=== PATIENT | female | born 2000 | race American Indian/Alaskan Native ===

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

== ENCOUNTER 2022-02-11 03:47 | Inpatient (IN) | payer OTHER, MEDICAID ==
[2022-02-11 04:43] LABS: Alanine Aminotransferase 17 units/L (7-56); Albumin 4.1 g/dL (3.9-5); BUN/Creatinine Ratio 9; Blood Urea Nitrogen 7 mg/dL (7-17); Calcium 9.9 mg/dL (8.4-10.2); Hemolysis Index 15
[2022-02-11 04:48] LABS: Bilirubin,Direct < 0.2 mg/dL (0-0.2)
[2022-02-11 05:04] LABS: Basophils % (Auto) 0.2 % (0.0-1.8); Hematocrit 36.3 % (30.3-42.9); Lymphocytes # (Auto) 1.3 K/mm3 (1.2-5.4); Lymphocytes % (Auto) 15.1 % (13.4-35.0); Mean Corpuscular HGB Conc 33 % (30-34); Mean Corpuscular Volume 84 fl (79-97); Monocytes % (Auto) 11.8 % (0.0-7.3); Platelet Count 280 K/mm3 (140-440); Red Blood Count 4.33 M/mm3 (3.65-5.03); Red Cell Distribution Width 15.3 % (13.2-15.2)
--- NOTE | 2022-02-11 05:49 | XRay Report ---
Abdomen 2 views INDICATION: Abdominal pain IMPRESSION: Nonobstructive bowel gas pattern. Multiple surgical clips project over the left upper farrah drant. Signer Name: Gerardo Chew MD Signed: 02/11/2022 5:44 AM Workstation Name: [email or web address]
--- NOTE | 2022-02-11 10:36 | Event Note ---
Date: 02/11/22 patient followed by me, called me that she went to the ER in brief, intractable N/V after gastric sleeve in [place] multiple CT scans, initially there was fluid collection near the surgical site but resolved on most recent imaging EGD negative HIDA just done showed GB EF 13% so I referred to Dr Castanon for CCY
[2022-02-11] MEDS ORDERED: ONDANSETRON 4 MG/2 ML INJ IV ONE (10:55)
[2022-02-11] MEDS ORDERED: MORPHINE 4 MG/1 ML INJ IV ONE (10:55)
--- NOTE | 2022-02-11 10:55 | Emergency Department Report ---
ED Abdominal Pain HPI - General Chief Complaint: Abdominal Pain Stated Complaint: FLANK PAIN/VOMITING Time Seen by Provider: 02/11/22 10:48 Source: patient Mode of arrival: Ambulatory Limitations: No Limitations - History of Present Illness Initial Comments: 21 yo female who was sent in from primary care office with possible gallbladder problem. Patient has been having nausea and vomiting and right upper abdominal pain for the last couple of months without improvement. Patient have had several abdominal CT scan that has been inconclusive but most recent HIDA scan was diagnostic of biliary dyskinesia. Pt denies any fever but chills. Also noted nausea with no emesis. No other modifying or associated factors reported. MD Complaint: abdominal pain - Related Data Home Medications Medication Instructions Recorded Confirmed Last Taken Ziprasidone HCl [Geodon] 80 mg PO QHS 06/04/19 10/08/19 10/08/19 20:00 Ziprasidone [Geodon] 40 mg PO QAM 06/04/19 10/08/19 10/08/19 10:00 Oxybutynin [Ditropan] 5 mg PO BID 06/05/19 10/08/19 Unknown Prazosin [Minipress] 1 mg PO BID 06/05/19 10/08/19 Unknown hydrOXYzine HCL [Atarax] 25 mg PO QHS 06/05/19 10/08/19 Unknown OXcarbazepine [Trileptal] 600 mg PO BID 10/08/19 10/08/19 Unknown Allergies Allergy/AdvReac Type Severity Reaction Status Date / Time No Known Allergies Allergy Verified 11/11/18 13:05 ED Review of Systems ROS: Stated complaint: FLANK PAIN/VOMITING Other details as noted in HPI Comment: All other systems reviewed and negative Gastrointestinal: abdominal pain, nausea, vomiting. denies: diarrhea, constipation ED Past Medical Hx - Past Medical History Hx Psychiatric Treatment: Yes (bipolar schizoaffective, PTSD, anxiety, adhd, autism) Additional medical history: pica, Asperger - Surgical History Additional Surgical History: t&A i&d THROAT. HERNIA TENDON SURGERY RIGHT HAND - Social History Smoking Status: Current Some Day Smoker Substance Use Type: Marijuana - Medications Home Medications: Home Medications Medication Instructions Recorded Confirmed Last Taken Type Ziprasidone HCl [Geodon] 80 mg PO QHS 06/04/19 10/08/19 10/08/19 20:00 History Ziprasidone [Geodon] 40 mg PO QAM 06/04/19 10/08/19 10/08/19 10:00 History Oxybutynin [Ditropan] 5 mg PO BID 06/05/19 10/08/19 Unknown History Prazosin [Minipress] 1 mg PO BID 06/05/19 10/08/19 Unknown History hydrOXYzine HCL [Atarax] 25 mg PO QHS 06/05/19 10/08/19 Unknown History OXcarbazepine [Trileptal] 600 mg PO BID 10/08/19 10/08/19 Unknown History ED Physical Exam - General Limitations: No Limitations General appearance: alert, in distress (due to abdominal pain ) - Head Head exam: Present: normal inspection - Eye Eye exam: Present: normal appearance Pupils: Present: normal accommodation - ENT ENT exam: Present: normal exam, mucous membranes dry - Neck Neck exam: Present: normal inspection, full ROM. Absent: tenderness - Respiratory Respiratory exam: Present: normal lung sounds bilaterally. Absent: respiratory distress, accessory muscle use - Cardiovascular Cardiovascular Exam: Present: regular rate, normal rhythm, normal heart sounds - GI/Abdominal GI/Abdominal exam: Present: soft, tenderness (epigastric and RUQ). Absent: distended - Extremities Exam Extremities exam: Present: normal inspection, full ROM, normal capillary refill. Absent: tenderness, pedal edema - Back Exam Back exam: Absent: tenderness, CVA tenderness (R), CVA tenderness (L) - Neurological Exam Neurological exam: Present: alert, oriented X3 - Psychiatric Psychiatric exam: Present: normal affect, normal mood - Skin Skin exam: Present: warm, normal color ED Course Vital Signs 02/11/22 02/11/22 03:53 10:28 Temperature 98.1 F 98.6 F Pulse Rate 91 H 85 Respiratory 16 18 Rate Blood Pressure 154/110 Blood Pressure 141/100 [Left] O2 Sat by Pulse 98 99 Oximetry - Consultations Consultation #1: 02/11/22 11:03 Dr Castanon consulted who planned to take patient to OR as soon as tomorrow-- Consultation #2: 02/11/22 11:03 Dr Odonnell consulted who accept pt for further evaluation and treatment ED Medical Decision Making - Lab Data Result diagrams: 02/11/22 04:05 02/11/22 04:05 - Medical Decision Making Here with abdominal pain and noted with RUQ and epigastric tenderness-- with recent HIDA scan with 13 % this is likely billiary dyskinesia--but differential could be but not limited to appendicitis, diverticulitis, cholecystitis, cholelithiasis, nephrolithiasis, gastritis, pancreatitis, duodenitis, colitis, irritable bowel syndrome, cystitis, so in order to rule this out we will go ahead and order routine acute abdomen that include CBC, CMP, urinalysis. In the meantime will call and consult with Dr Castanon our surgeon pediatric occupational therapist -- who accept to have patient on soft diet and NPO pass midnight for likely surgical intervention as soon as possible. No antibiotics suggested at this time. She wanted patient admitted to the hospitalist so Dr Odonnell consulted who accept pt for further evaluation and treatment Lab reviewed with normal wbc with Critical care attestation.: If time is entered above; I have spent that time in minutes in the direct care of this critically ill patient, excluding procedure time. ED Disposition Clinical Impression: Biliary dyskinesia, Acute abdominal pain in right upper quadrant Disposition: ADMITTED INPATIENT Is pt being admited?: Yes Does the pt Need Aspirin: No Condition: Stable Instructions: Abdominal Pain (ED) Referrals: PRIMARY CARE, [Primary Care Provider] - 3-5 Days Time of Disposition: 11:04
[2022-02-11] MEDS ORDERED: ACETAMINOPHEN 325 MG TAB PO PRN (10:56)
--- NOTE | 2022-02-11 11:12 | History and Physical Report ---
History of Present Illness Chief complaint: My stomach hurts History of present illness: 21 YO Female with AMAN, PTSD, ADHD, Autism, Bipolar Disorder, Schizoaffective Disorder, Asperger, PICA presents to ED for evaluation. Patient reports "my stomach is hurting". Patient states that she has experienced abdominal pain over the past several months with persistent and worsening symptoms intermittently over the same timeframe. Patient states that her pain is 9/10, constant, not worsened with exertion. Not worsened with meals. Patient states that her pain radiates to the right side of her abdomen. Patient seen and evaluated as outpatient by [facility], Dr. Cortes. Patient underwent CT scan abdomen pelvis, EGD, and HIDA scan. HIDA scan revealed gallbladder ejection fraction of 30%. Patient acknowledges nausea and multiple episodes of vomiting. Patient transported to [facility] via private vehicle for further care and evaluation of the aforementioned symptoms. The patient was seen and evaluated in the emergency department. All lab and imaging studies reviewed. Patient found to have clinical symptoms consistent with acute cholecystitis/symptomatic cholelithiasis. Surgery team consulted in ED. Patient pending surgical intervention at this time. Patient denies fever, chills, chest pain, palpitation, adductive cough, skin rash or recent contact, known exposure to COVID-19. No prior admission for review. All medication listed at time of admission has been reconciled. Advanced care planning conducted in ED. Past History Past Medical History: other (See HPI) Past Surgical History: hernia repair, Other (Gastric sleeve) Social history: single, lives with family Family history: hypertension Medications and Allergies Allergies Allergy/AdvReac Type Severity Reaction Status Date / Time No Known Allergies Allergy Verified 02/11/22 11:09 Active Meds: Active Medications Acetaminophen (Acetaminophen 325 Mg Tab) 650 mg PO Q4H PRN PRN Reason: Pain MILD(1-3)/Fever >100.5/VELASQUEZ Hydromorphone HCl (Hydromorphone 0.5 Mg/0.5 Ml Inj) 0.5 mg IV Q3H PRN PRN Reason: Pain , Severe (7-10) Hydroxyzine HCl (Hydroxyzine Hcl 25 Mg Tab) 25 mg PO QHS [facility] Sodium Chloride (Nacl 0.9% 1000 Ml) 1,000 mls @ 125 mls/hr IV DIRECT [facility] Miscellaneous Medication (Oxcarbazepine [Trileptal]) 600 mg PO BID [facility] Miscellaneous Medication (Ziprasidone Hcl [Geodon]) 80 mg PO QHS [facility] Ondansetron HCl (Ondansetron 4 Mg/2 Ml Inj) 4 mg IV Q8H PRN PRN Reason: Nausea And Vomiting Oxybutynin Chloride (Oxybutynin 5 Mg Tab) 5 mg PO BID [facility] Oxycodone/Acetaminophen (Oxycodone /Acetaminophen 5-325mg Tab) 1 tab PO Q6H PRN PRN Reason: Pain, Moderate (4-6) Prazosin HCl (Prazosin 1 Mg Cap) 1 mg PO BID [facility] Sodium Chloride (Sodium Chloride 0.9% 10 Ml Flush Syringe) 10 ml IV BID [facility] Sodium Chloride (Sodium Chloride 0.9% 10 Ml Flush Syringe) 10 ml IV PRN PRN PRN Reason: LINE FLUSH Ziprasidone (Ziprasidone 40 Mg Cap) 40 mg PO QAM [facility] Review of Systems Constitutional: weight loss, no weight gain, no fever, no sweats Ears, nose, mouth and throat: no ear pain, no tinnitis, no decreased hearing Cardiovascular: no chest pain, no orthopnea, no rapid/irregular heart beat, no edema, no syncope Respiratory: no cough, no cough with sputum, no excessive sputum, no hemoptysis Gastrointestinal: abdominal pain, nausea, vomiting, no hematemesis, no coffee ground emesis, no BRBPR, no melena, no hematochezia Genitourinary Female: no pelvic pain, no flank pain, no dysuria, no urinary frequency, no urgency Rectal: no pain, no incontinence, no bleeding Musculoskeletal: no neck stiffness, no neck pain, no arm numbness/tingling, no low back pain, no shooting leg pain Integumentary: no rash, no redness, no sores, no wounds, no jaundice Neurological: no head injury, no paralysis, no seizures, no tremors Psychiatric: no anxiety, no change in sleep habits, no sleep disturbances, no hypersomnia, no suicidal ideation, no hallucinations Endocrine: no cold intolerance, no excessive thirst, no polyuria Hematologic/Lymphatic: no easy bruising, no easy bleeding Allergic/Immunologic: no urticaria, no allergic rhinitis, no wheezing Exam - Constitutional Vitals: Temp Pulse Resp BP Pulse Ox 98.6 F 85 18 141/100 99 09/01/22 10:28 02/11/22 10:28 02/11/22 10:28 02/11/22 10:28 02/11/22 10:28 General appearance: Present: mild distress - EENT Eyes: Present: PERRL ENT: hearing intact, clear oral mucosa - Neck Neck: Present: supple, normal ROM - Respiratory Respiratory effort: normal Respiratory: bilateral: CTA - Cardiovascular Heart Sounds: Present: S1 & S2. Absent: rub, click - Extremities Extremities: pulses symmetrical, No edema Peripheral Pulses: within normal limits - Abdominal General gastrointestinal: Present: soft, tender, normal bowel sounds Localized gastrointestinal: tender: diffuse Female genitourinary: Present: normal - Integumentary Integumentary: Present: clear, warm, dry - Musculoskeletal Musculoskeletal: gait normal, strength equal bilaterally - Psychiatric Psychiatric: appropriate mood/affect, intact judgment & insight - Neurologic Neurologic: CNII-XII intact, moves all extremities Results - Labs CBC & Chem 7: 02/11/22 04:05 02/11/22 04:05 Labs: Abnormal lab results 02/11/22 02/11/22 Range/Units 04:05 04:05 RDW 15.3 H (13.2-15.2) % [place] % (Auto) 11.8 H (0.0-7.3) % [place] # (Auto) 1.0 H (0.0-0.8) K/mm3 Seg Neutrophils % 72.9 H (40.0-70.0) % Glucose 104 H (65-100) mg/dL Lipase 12 L (13-60) units/L Assessment and Plan - Patient Problems (1) Acute cholecystitis Current Visit: Yes Status: Suspected Plan to address problem: Surgery team consulted. Further care and evaluation as per surgical team. N.p.o., IV fluid resuscitation therapy, supportive care, pain control. (2) Biliary dyskinesia Current Visit: Yes Status: Acute Plan to address problem: Liver function test, surgery team consulted. Supportive care, further care and evaluation as per surgical team. Repeat CMP in AM. (3) Autism Current Visit: Yes Status: Acute Plan to address problem: Continue medical management, supportive care. (4) Asperger's disorder Current Visit: Yes Status: Acute Plan to address problem: Continue medical management, supportive care. (5) Generalized anxiety disorder Current Visit: Yes Status: Acute Plan to address problem: Benzodiazepine therapy as clinical indicated, verbal prompting, verbal redirection. (6) Bipolar disorder Current Visit: Yes Status: Acute Plan to address problem: Continue medical management, supportive care, outpatient psychiatry follow-up. (7) DVT prophylaxis Current Visit: Yes Status: Acute Plan to address problem: SCD to bilateral lower extremities while in bed (8) Advance care planning Current Visit: Yes Status: Acute Plan to address problem: Disease education conducted, care plan discussed, diagnoses discussed, prognosis discussed, patient acknowledges understanding and agreed with care plan, +30 minutes. (9) Preventative health care Current Visit: Yes Status: Acute Plan to address problem: Patient counseled regarding medication compliance, outpatient follow-up with psychiatry, outpatient follow-up with primary care physician for all age and risk factor appropriate screening test. +30 minutes.
[2022-02-11] MEDS: SODIUM CHLORIDE 0.9% 1000 ML 1,000 ML IV SCH ×2 (12:03→17:27)
[2022-02-11] MEDS: HYDROmorphone 0.5 MG/0.5 ML INJ IV PRN ×2 (12:03→20:34)
[2022-02-11] MEDS: ONDANSETRON 4 MG/2 ML INJ IV PRN ×2 (12:03→20:38)
--- NOTE | 2022-02-11 12:47 | Consultation ---
History of Present Illness Consult date: 02/11/22 Reason for consult: abdominal pain Chief complaint: abd pain - History of present illness History of present illness: 21 yo F with hx of bipolar d/o who presents to ER with intractable abdominal pain. Pain has been ongoing for months. Patient has hx of lap gastric sleeve in October 2021 in [place]. Patient states her pain in in the epigastrum and can radiate to the right side of her abdomen. No alleviating factors. It is associated with NB/NB emesis and nausea. Patient is followed by [facility] Dr. Cortes as outpatient. Outpt w/u included CT scan A/P, EGD, and HIDA scan. Recent CT and EGD unremarkable. HIDA revealed GB EF of 13%. No f/c, cp, sob. Pt currently nika clear liquids. Patient lost almost 75 lbs since her bariatric surgery. Past History Past Medical History: other (bipolar d/o) Past Surgical History: Other (Laparoscopic gastric sleeve) Social history: smoking (Marijuana-prescribed). denies: alcohol abuse Family history: hypertension (Mother), stroke (Mother) Medications and Allergies Allergies Allergy/AdvReac Type Severity Reaction Status Date / Time No Known Allergies Allergy Verified 02/11/22 11:09 Active Meds: Active Medications Acetaminophen (Acetaminophen 325 Mg Tab) 650 mg PO Q4H PRN PRN Reason: Pain MILD(1-3)/Fever >100.5/VELASQUEZ Hydromorphone HCl (Hydromorphone 0.5 Mg/0.5 Ml Inj) 0.5 mg IV Q3H PRN PRN Reason: Pain , Severe (7-10) Last Admin: 02/11/22 12:03 Dose: 0.5 mg Hydroxyzine HCl (Hydroxyzine Hcl 25 Mg Tab) 25 mg PO QHS [facility] Sodium Chloride (Nacl 0.9% 1000 Ml) 1,000 mls @ 125 mls/hr IV DIRECT [facility] Last Admin: 02/11/22 12:03 Dose: 125 mls/hr Ondansetron HCl (Ondansetron 4 Mg/2 Ml Inj) 4 mg IV Q8H PRN PRN Reason: Nausea And Vomiting Last Admin: 02/11/22 12:03 Dose: 4 mg Oxcarbazepine (Oxcarbazepine 300 Mg Tab) 600 mg PO BID [facility] Oxybutynin Chloride (Oxybutynin 5 Mg Tab) 5 mg PO BID [facility] Oxycodone/Acetaminophen (Oxycodone /Acetaminophen 5-325mg Tab) 1 tab PO Q6H PRN PRN Reason: Pain, Moderate (4-6) Prazosin HCl (Prazosin 1 Mg Cap) 1 mg PO BID [facility] Sodium Chloride (Sodium Chloride 0.9% 10 Ml Flush Syringe) 10 ml IV BID [facility] Sodium Chloride (Sodium Chloride 0.9% 10 Ml Flush Syringe) 10 ml IV PRN PRN PRN Reason: LINE FLUSH Ziprasidone (Ziprasidone 40 Mg Cap) 40 mg PO QAM [facility] Ziprasidone (Ziprasidone 40 Mg Cap) 80 mg PO QHS [facility] Review of Systems All systems: negative (10 point ROS performed and negative except for that listed in HPI) Exam Vital Signs Temp Pulse Resp BP Pulse Ox 98.1 F 91 H 16 154/110 98 02/11/22 03:53 02/11/22 03:53 02/11/22 03:53 02/11/22 03:53 02/11/22 03:53 Narrative exam: Gen.: Awake, alert, oriented x3. No apparent distress ENT: Trachea midline. No lymphadenopathy. No scleral icterus or conjunctival pallor CV: S1, S2 present Respiratory: No audible wheezes Abdomen: Soft, nondistended, tenderness to palpation in the epigastrium, left upper quadrant. Multiple well-healed laparoscopic scars. No rebound, rigidity, guarding Extremities: No clubbing, cyanosis, edema Results - Labs 02/11/22 04:05 02/11/22 04:05 Abnormal lab results 02/11/22 02/11/22 Range/Units 04:05 04:05 RDW 15.3 H (13.2-15.2) % [place] % (Auto) 11.8 H (0.0-7.3) % [place] # (Auto) 1.0 H (0.0-0.8) K/mm3 Seg Neutrophils % 72.9 H (40.0-70.0) % Glucose 104 H (65-100) mg/dL Lipase 12 L (13-60) units/L Diabetes panel 02/11/22 Range/Units 04:05 Sodium 138 (137-145) mmol/L Potassium 3.6 (3.6-5.0) mmol/L Chloride 98.1 (98-107) mmol/L Carbon Dioxide 22 (22-30) mmol/L BUN 7 (7-17) mg/dL Creatinine 0.8 (0.6-1.2) mg/dL Glucose 104 H (65-100) mg/dL Calcium 9.9 (8.4-10.2) mg/dL AST 17 (5-40) units/L ALT 17 (7-56) units/L Alkaline Phosphatase 92 (35-129) units/L Total Protein 7.1 (6.3-8.2) g/dL Albumin 4.1 (3.9-5) g/dL Calcium panel 02/11/22 Range/Units 04:05 Calcium 9.9 (8.4-10.2) mg/dL Albumin 4.1 (3.9-5) g/dL Pituitary panel 02/11/22 Range/Units 04:05 Sodium 138 (137-145) mmol/L Potassium 3.6 (3.6-5.0) mmol/L Chloride 98.1 (98-107) mmol/L Carbon Dioxide 22 (22-30) mmol/L BUN 7 (7-17) mg/dL Creatinine 0.8 (0.6-1.2) mg/dL Glucose 104 H (65-100) mg/dL Calcium 9.9 (8.4-10.2) mg/dL Adrenal panel 02/11/22 Range/Units 04:05 Sodium 138 (137-145) mmol/L Potassium 3.6 (3.6-5.0) mmol/L Chloride 98.1 (98-107) mmol/L Carbon Dioxide 22 (22-30) mmol/L BUN 7 (7-17) mg/dL Creatinine 0.8 (0.6-1.2) mg/dL Glucose 104 H (65-100) mg/dL Calcium 9.9 (8.4-10.2) mg/dL Total Bilirubin 0.20 (0.1-1.2) mg/dL AST 17 (5-40) units/L ALT 17 (7-56) units/L Alkaline Phosphatase 92 (35-129) units/L Total Protein 7.1 (6.3-8.2) g/dL Albumin 4.1 (3.9-5) g/dL Assessment and Plan 21 yo F with biliary dyskinesia, intractable abd pain/n/v Plan: -Patient admitted to hospitalist service 1. CLD today 2. NPOp MN 3. prn pain and nausea control 4. Okay to resume home medications 5. Plan for cholecystectomy tomorrow 02/12/2022. All risks, benefits, alternatives to surgery discussed with the patient and questions answered. Consent obtained. I did make patient aware that if her pain continues despite cholecystectomy she will likely need to follow-up with a bariatric surgeon for further work-up. Patient made her mother aware of plan. Thank you for this consultation. Please call with any questions or concerns. Evaluation and treatment of this patient was during the time of the national and state emergency arising from COVID19 coronavirus pandemic. Treatment and procedures performed meet the current and available best practice and guidelines for patient during the COVID pandemic.
--- NOTE | 2022-02-11 14:00 | Anesthesia Consultation ---
<ESTHELA WARE - Last Filed: 02/11/22 13:56> Anesthesia Consult and Med Hx Date of service: 02/12/22 - Airway Anesthetic Teeth Evaluation: Dentures (uppers. Pt states not removable) ROM Head & Neck: Adequate Mental/Hyoid Distance: Adequate Mallampati Class: Class I Intubation Access Assessment: Good - Pulmonary Exam CTA: No - Cardiac Exam Cardiac Exam: RRR - Pre-Operative Health Status ASA Pre-Surgery Classification: ASA1 Proposed Anesthetic Plan: General - Pre-Anesthesia Comment Pre-Anesthesia Comments: Pt requested to have mother present during anesthesia eval. Mother not avail in person nor phone at current. Pt unwilling to communicate "while in pain". <ASHLEY EMERSON - Last Filed: 02/12/22 10:03> Anesthesia Consult and Med Hx - Airway Intubation Access Assessment: Good - Pre-Operative Health Status ASA Pre-Surgery Classification: ASA2 Proposed Anesthetic Plan: General - Pulmonary Hx Smoking: No Hx Respiratory Symptoms: No - Cardiovascular System Hx Hypertension: No - Central Nervous System CVA: No Hx Psychiatric Problems: Yes - Endocrine Hx Renal Disease: No Hx Liver Disease: No Hx Insulin Dependent Diabetes: No Hx Non-Insulin Dependent Diabetes: No Hx Thyroid Disease: No - Other Systems Hx Obesity: No - Additional Comments Anesthesia Medical History Comments: Active N/V in preop. Discussed medical hx and anesthetic plan in preop are with patient prior to surgery. Written anesthesia consent obtained.
[2022-02-11] MEDS: oxyCODONE /ACETAMINOPHEN 5-325MG TAB PO PRN ×2 (14:46→22:56)
[2022-02-11] MEDS ORDERED: NON-FORMULARY EACH (Oxcarbazepine [Trileptal] 600 MG Tablet) PO SCH (22:00)
[2022-02-11] MEDS ORDERED: NON-FORMULARY EACH (Ziprasidone Hcl [Geodon] 80 MG Capsule) PO SCH (22:00)
[2022-02-11] MEDS: ZIPRASIDONE 40 MG CAP PO SCH (22:32)
[2022-02-11] MEDS: hydrOXYzine HCL 25 MG TAB PO SCH (22:32)
[2022-02-11] MEDS: OXYBUTYNIN 5 MG TAB PO SCH (22:32)
[2022-02-11] MEDS: OXcarbazepine 300 MG TAB PO SCH ×2 (22:33→22:48)
[2022-02-11] MEDS: PRAZOSIN 1 MG CAP PO SCH (22:43)
[2022-02-12 05:50] LABS: Basophils % (Auto) 0.5 % (0.0-1.8); Eosinophils # (Auto) 0.1 K/mm3 (0.0-0.4); Eosinophils % (Auto) 1.6 % (0.0-4.3); Hematocrit 32.2 % (30.3-42.9); Hemoglobin 10.4 gm/dl (10.1-14.3); Lymphocytes # (Auto) 1.6 K/mm3 (1.2-5.4); Lymphocytes % (Auto) 27.9 % (13.4-35.0); Mean Corpuscular HGB Conc 32 % (30-34); Mean Corpuscular Volume 85 fl (79-97); Monocytes # (Auto) 0.8 K/mm3 (0.0-0.8); Monocytes % (Auto) 13.3 % (0.0-7.3); Platelet Count 211 K/mm3 (140-440); Red Cell Distribution Width 15.4 % (13.2-15.2)
[2022-02-12 06:09] LABS: Alanine Aminotransferase 14 units/L (7-56); Albumin 3.4 g/dL (3.9-5); BUN/Creatinine Ratio 10; Blood Urea Nitrogen 8 mg/dL (7-17); Hemolysis Index 1
[2022-02-12] MEDS: SODIUM CHLORIDE 0.9% 1000 ML 1,000 ML IV SCH (06:18)
[2022-02-12] MEDS ORDERED: LACTATED RINGERS 1,000 ML ONE ×2 (09:45→11:43)
[2022-02-12] MEDS ORDERED: SCOPOLAMINE TRANSDERMAL PATCH 72 HR TD ONE (09:56)
[2022-02-12] MEDS ORDERED: MIDAZOLAM 2 MG/2 ML INJ ONE (09:57)
[2022-02-12] MEDS ORDERED: ceFAZolin/STERILE WATER 2 GM/20 ML SYRINGE IV NR (10:00)
[2022-02-12] MEDS ORDERED: HYDROmorphone 0.5 MG/0.5 ML INJ IV PRN (10:04)
--- NOTE | 2022-02-12 10:04 | Anesthesia Day of Surgery ---
Anesthesia Day of Surgery - Day of Surgery Patient Examined: Yes Patient H&P Reviewed: Yes Patient is NPO: Yes
[2022-02-12] MEDS ORDERED: LIDOCAINE MPF (2%) 20 MG/1 ML VIAL 5 ML ONE (10:18)
[2022-02-12] MEDS ORDERED: LIDOCAINE (1%) 10 MG/1 ML VIAL 20 ML MDV ONE (10:18)
[2022-02-12] MEDS ORDERED: HYDROmorphone 1 MG/1 ML INJ ONE (10:18)
[2022-02-12] MEDS ORDERED: dexAMETHasone 20 MG/5 ML VIAL ONE (10:18)
[2022-02-12] MEDS ORDERED: BUPIVACAINE/PF (0.5%) 5 MG/1 ML 30 ML VIAL INFILTRATI ONE ×2 (10:19→11:27)
[2022-02-12] MEDS ORDERED: propofoL 200 MG/20 ML VIAL IV ONE (10:19)
[2022-02-12] MEDS ORDERED: ePHEDrine SULFATE 50 MG/1 ML INJ ONE (10:20)
[2022-02-12] MEDS: ONDANSETRON 4 MG/2 ML INJ IV NR ×3 (10:21→20:50)
[2022-02-12] MEDS ORDERED: INDOCYANINE GREEN 25 MG VIAL IVP ONE (10:22)
[2022-02-12] MEDS ORDERED: INDOCYANINE GREEN 25 MG VIAL IVP NR (10:32)
[2022-02-12] MEDS ORDERED: MIDAZOLAM 2 MG/2 ML INJ IV NR (11:00)
[2022-02-12] MEDS ORDERED: SCOPOLAMINE TRANSDERMAL PATCH 72 HR TD NR (11:00)
[2022-02-12] MEDS ORDERED: fentaNYL 100 MCG/2 ML INJ ONE (11:13)
[2022-02-12] MEDS ORDERED: SODIUM CHLORIDE 0.9% IRR 1,500 ML BOTTLE IR ONE (11:27)
[2022-02-12] MEDS ORDERED: LIDOCAINE (1%) 10 MG/1 ML VIAL 20 ML MDV INFILTRATI ONE (11:27)
[2022-02-12] MEDS ORDERED: NEOSTIGMINE 10MG/10 ML INJ MDV ONE (12:02)
[2022-02-12] MEDS ORDERED: GLYCOPYRROLATE 0.4 MG/2 ML INJ ONE (12:02)
--- NOTE | 2022-02-12 12:27 | Post Operative Note ---
Pre-op diagnosis: biliary dyskinesia Post-op diagnosis: same Findings: distended gallbladder with adhesions to omentum Procedure: robotic assisted laparoscopic cholecystectomy Anesthesia: GETA, local Surgeon: WANG BOWMAN (ASSIST: [employer]) Estimated blood loss: minimal Pathology: list (gallbladder) Specimen disposition: to lab Condition: stable Disposition: PACU
[2022-02-12] MEDS ORDERED: LACTATED RINGERS 1,000 ML IV SCH (12:30)
[2022-02-12] MEDS ORDERED: hydrALAZINE 20 MG/1 ML INJ ONE (12:35)
--- NOTE | 2022-02-12 13:49 | Post Anesthesia Evaluation ---
- Post Anesthesia Evaluation Patient Participated: Yes Airway Patent: Yes Stable Respiratory Function: Yes Nausea/Vomiting: No Temp > 96.8F: Yes Pain Manageable: Yes Adequeate Hydration: Yes Anesthesia Complications: No Other Comments: Patient had difficulty urinating post op and was straight cathed with 550cc urine returned. Received hydralazine IV for hypertension which persisted despite cath. BP back nearf preproceedure baseline at time of transfer.
[2022-02-12] MEDS: HYDROmorphone 0.5 MG/0.5 ML INJ IV PRN ×2 (14:45→20:50)
[2022-02-12] MEDS: PRAZOSIN 1 MG CAP PO SCH ×2 (17:11→22:06)
[2022-02-12] MEDS: oxyCODONE /ACETAMINOPHEN 5-325MG TAB PO PRN (17:19)
[2022-02-12] MEDS: ZIPRASIDONE 40 MG CAP PO SCH ×2 (17:21→22:07)
[2022-02-12] MEDS: OXcarbazepine 300 MG TAB PO SCH ×2 (17:22→22:06)
[2022-02-12] MEDS: OXYBUTYNIN 5 MG TAB PO SCH ×3 (17:22→22:21)
--- NOTE | 2022-02-12 17:28 | Operative Report ---
Operative Report Operative Report: Date: 02/12/22 Pre-op diagnosis: biliary dyskinesia Post-op diagnosis: same Findings: distended gallbladder with adhesions to omentum Procedure: robotic assisted laparoscopic cholecystectomy Anesthesia: GETA, local Surgeon: WANG BOWMAN (ASSIST: [employer]) Estimated blood loss: minimal Pathology: list (gallbladder) Specimen disposition: to lab Condition: stable Disposition: PACU HPI an indication: 21-year-old female who presented to the ER with intractable upper abdominal pain, n/v for several months. She has hx of lap gastric sleeve several months ago and lost about 75 lbs. Extensive w/u for symptoms was performed as outpatient and HIDA scan revealed GB EF of 13%. Patient was admitted to the hospital and started on IVF and antiemetics. It was recommended that the patient undergo cholecystectomy for biliary dyskinesia. All risks, benefits, alternatives to surgery were discussed in detail and questions answered. Consent was obtained for robotic assisted laparoscopic, possible open cholecystectomy, possible cholangiogram. Procedure in detail: The patient was identified in the preoperative area and taken back to the operating room, placed on the operating room table in supine position. After anesthesia was induced, the abdomen was prepped and draped in usual sterile fashion and timeout was performed. Local anesthetic was infiltrated into all of the skin incision sites. A enid incision was made in the LUQ through which a Veress needle was inserted. The Veress needle positioning was confirmed using the saline drop test and the abdomen insufflated to 15 mmHg without incident. A supraumbilical incision was made through which a 5 mm Optiview trocar was placed. The abdomen was inspected and there was no underlying injury to the abdominal structures. The veress needle was identified and removed. 8 mm robotic trocars were then placed in the right upper quadrant, left upper quadrant, and left lateral abdomen under direct visualization. The 5 mm supraumbilical trocar was removed and replaced with an 8 mm robotic trocar. The patient was placed in reverse Trendelenburg and tilted to the left. The robot was then docked. A Noel grasper was placed in arm #1, a camera in arm #2, a monopolar hook in arm #3, and a prograsp in arm #4. The surgeon was then transferred to the console. The gallbladder was moderately distended with adhesions to the omentum. The omental adhesions were taken down using blunt dissection and electrocautery. The fundus of the gallbladder was grasped and retracted cephalad to the liver. The infundibulum was retracted laterally. Using firefly, the cystic duct was identified. The cystic duct and artery were carefully skeletonized in the usual fashion. The medial and lateral peritoneal attachments to the gallbladder were dissected using a combination of blunt dissection and hook electrocautery. The cystic duct and artery were the only 2 structures seen entering the gallbladder and the critical view was successfully obtained. 2 hemolock clips were placed on the proximal aspect of the cystic duct and 1 distally, and 1 hemolock clip was placed on the proximal aspect of the cystic artery and 1 distally. Both structures were transected in between the clips using EndoShears by the assistant paralegal. The gallbladder was dissected from the liver bed using electrocautery. Once completely dissected it was placed into the right upper quadrant and the liver bed was examined for hemostasis. This was carefully ensured. The clips were visualized and intact. There was no bleeding or bile leakage. The instrument in arm #3 was replaced with the camera. The assistant paralegal deployed the endocatch bag and the gallbladder was placed in the bag and secured. The robot was then undocked and the surgeon scrubbed back in. The remainder of the case was performed laparoscopically. The gallbladder was removed via the umbilical port. The fascia of this port was was closed with interrupted 0 Vicryl suture x2 using the Mark Eric device. The raytec in the abdomen was removed. The ports were then removed under direct visualization. Skin incisions were closed with 4-0 Monocryl subcuticular stitches and skin glue. All skin incisions were once again infiltrated with local anesthetic. At the end case all sponge, instrument, sharp counts were correct 2. The patient was awoken from anesthesia, extubated, and taken to PACU in stable condition.
[2022-02-12] MEDS ORDERED: hydrALAZINE 20 MG/1 ML INJ IV PRN (21:27)
[2022-02-12] MEDS ORDERED: hydrALAZINE 20 MG/1 ML INJ IV SCH (22:00)
[2022-02-12] MEDS: hydrOXYzine HCL 25 MG TAB PO SCH (22:11)
--- NOTE | 2022-02-12 22:36 | Progress Note ---
Assessment and Plan (1) Acute cholecystitis Current Visit: Yes Status: Suspected Plan to address problem: Surgery team consulted. Further care and evaluation as per surgical team. N.p.o., IV fluid resuscitation therapy, supportive care, pain control. (2) Biliary dyskinesia Current Visit: Yes Status: Acute Plan to address problem: Liver function test, surgery team consulted. Supportive care, further care and evaluation as per surgical team. Repeat CMP in AM. (3) Autism Current Visit: Yes Status: Acute Plan to address problem: Continue medical management, supportive care. (4) Asperger's disorder Current Visit: Yes Status: Acute Plan to address problem: Continue medical management, supportive care. (5) Generalized anxiety disorder Current Visit: Yes Status: Acute Plan to address problem: Benzodiazepine therapy as clinical indicated, verbal prompting, verbal redirection. (6) Bipolar disorder Current Visit: Yes Status: Acute Plan to address problem: Continue medical management, supportive care, outpatient psychiatry follow-up. (7) DVT prophylaxis Current Visit: Yes Status: Acute Plan to address problem: SCD to bilateral lower extremities while in bed (8) Advance care planning Current Visit: Yes Status: Acute Plan to address problem: Disease education conducted, care plan discussed, diagnoses discussed, prognosis discussed, patient acknowledges understanding and agreed with care plan, +30 minutes. (9) Preventative health care Current Visit: Yes Status: Acute Plan to address problem: Patient counseled regarding medication compliance, outpatient follow-up with psychiatry, outpatient follow-up with primary care physician for all age and risk factor appropriate screening test. +30 minutes. Subjective Date of service: 02/12/22 Objective - Constitutional Vitals: Vital Signs - 12hr 02/12/22 02/12/22 02/12/22 12:25 12:30 12:35 Temperature 97.0 F L Pulse Rate 79 80 80 Respiratory 18 17 19 Rate Blood Pressure 159/104 158/109 157/108 Blood Pressure [Left] O2 Sat by Pulse 100 100 100 Oximetry 02/12/22 02/12/22 02/12/22 12:40 12:45 13:00 Temperature Pulse Rate 84 82 79 Respiratory 22 18 20 Rate Blood Pressure 142/99 147/100 152/104 Blood Pressure [Left] O2 Sat by Pulse 100 100 100 Oximetry 02/12/22 02/12/22 02/12/22 13:15 13:30 14:00 Temperature 98.4 F Pulse Rate 93 H 85 88 Respiratory 22 17 13 Rate Blood Pressure 150/100 143/96 155/97 Blood Pressure [Left] O2 Sat by Pulse 98 98 99 Oximetry 02/12/22 02/12/22 02/12/22 18:00 20:01 20:58 Temperature 98.7 F Pulse Rate 64 Respiratory 20 Rate Blood Pressure Blood Pressure 173/108 [Left] O2 Sat by Pulse 98 98 Oximetry 02/12/22 02/12/22 21:04 22:06 Temperature Pulse Rate 64 64 Respiratory Rate Blood Pressure 173/108 Blood Pressure 187/104 [Left] O2 Sat by Pulse Oximetry - Labs CBC & Chem 7: 02/12/22 05:13 02/12/22 05:13 Labs: Abnormal lab results 02/12/22 02/12/22 Range/Units 05:13 05:13 MCH 27 L (28-32) pg RDW 15.4 H (13.2-15.2) % [place] % (Auto) 13.3 H (0.0-7.3) % Potassium 3.5 L (3.6-5.0) mmol/L Total Protein 5.6 L D (6.3-8.2) g/dL Albumin 3.4 L (3.9-5) g/dL
[2022-02-13] MEDS: SODIUM CHLORIDE 0.9% 1000 ML 1,000 ML IV SCH (06:15)
[2022-02-13] MEDS: HYDROmorphone 0.5 MG/0.5 ML INJ IV PRN ×2 (06:15→11:45)
[2022-02-13] MEDS: ONDANSETRON 4 MG/2 ML INJ IV PRN ×2 (06:15→11:44)
--- NOTE | 2022-02-13 10:44 | Progress Note ---
Assessment and Plan Pod #1 for robotic cholecysttectomy. Pt with some incisional pain. tolerating diet. OK to dc today, fu with Dr. Dial next week. Subjective Date of service: 02/13/22 Patient Reports: Positive: feels better, tolerating a regular diet Narrative: Pod #1 for robotic cholecysttectomy. Pt with some incisional pain. tolerating diet. OK to dc today, fu with Dr. Dial next week. Objective Vital Signs - 12hr 02/13/22 06:12 Temperature 98.8 F Pulse Rate 96 H Respiratory 20 Rate Blood Pressure 130/76 [Left] - Labs 02/12/22 05:13 02/12/22 05:13
--- NOTE | 2022-02-13 12:19 | Discharge Summary ---
Providers - Providers Date of Admission: 02/11/22 10:57 Date of discharge: 02/20/22 Attending physician: ARISTEO CASTRO Primary care physician: [employer] Hospitalization Condition: Stable Disposition: 30 STILL A PATIENT Final Discharge Diagnosis (Prints w/discharge instructions): -- Acute cholecystitis s/p cholecystectomy Time spent for discharge: 34 minutes Core Measure Documentation - Palliative Care Palliative Care/ Comfort Measures: Not Applicable - Core Measures Any of the following diagnoses?: none Exam - Constitutional Vitals: Temp Pulse Resp BP Pulse Ox 98.8 F 96 H 20 130/76 98 02/13/22 06:12 02/13/22 06:12 02/13/22 06:12 02/13/22 06:12 02/12/22 20:01 Plan Activity: advance as tolerated Weight Bearing Status: Weight Bear as Tolerated Diet: low fat, low salt Follow up with: PRIMARY CARE, [Primary Care Provider] - 3-5 Days Prescriptions: oxyCODONE /ACETAMINOPHEN [Percocet 5/325 mg] 1 tab PO Q6H PRN #10 tablet PRN Reason: Pain, Moderate (4-6)
[2022-02-13 12:22] VITALS: BP 140/88
[2022-02-13] MEDS: OXcarbazepine 300 MG TAB PO SCH (13:24)
[2022-02-13] MEDS: PRAZOSIN 1 MG CAP PO SCH (13:24)
[2022-02-13] MEDS: OXYBUTYNIN 5 MG TAB PO SCH (13:24)
[2022-02-13] MEDS: ZIPRASIDONE 40 MG CAP PO SCH (13:24)
[2022-02-13] MEDS: oxyCODONE /ACETAMINOPHEN 5-325MG TAB PO PRN (14:13)
== END 2022-02-13 14:00 | disposition home or self-care (01) | DRG 418 ==
LOC: ED 03:47 → 3A 10:57
PROVIDERS: ADMIT Internal Medicine; ATTEND Internal Medicine
PROC: 0FT44ZZ Resection of Gallbladder, Percutaneous Endoscopic Approach (ICD-10-PCS; principal; 2022-02-12)
PROC: 8E0W4CZ Robotic Assisted Procedure of Trunk Region, Percutaneous Endoscopic Approach (ICD-10-PCS; 2022-02-12)
DX: K81.0 Acute cholecystitis (principal); F84.5 Asperger's syndrome; K82.8 Other specified diseases of gallbladder; F41.1 Generalized anxiety disorder; F31.9 Bipolar disorder, unspecified; F17.200 Nicotine dependence, unspecified, uncomplicated; F25.9 Schizoaffective disorder, unspecified; F43.10 Post-traumatic stress disorder, unspecified; F41.9 Anxiety disorder, unspecified; F90.9 Attention-deficit hyperactivity disorder, unspecified type; Z82.49 Family history of ischemic heart disease and other diseases of the circulatory system; Z82.3 Family history of stroke; K66.0 Peritoneal adhesions (postprocedural) (postinfection)
CPT/HCPCS: 36415; 74019; 80048; 80053; 80076; 82150; 83690; 84703; 85025; 87641; 88304; G0378; J1815; J3490; Q0177; J0360; J1100; J1170; J2250; J2270; J2405; J2704; J2710; J3010; J7030; J7120

== ENCOUNTER 2022-02-16 04:35 | Emergency (ER) | payer OTHER, MEDICAID ==
[2022-02-16] MEDS ORDERED: ONDANSETRON 4 MG/2 ML INJ IV ONE ×2 (05:30→09:37)
[2022-02-16] MEDS ORDERED: SODIUM CHLORIDE 0.9% 1000 ML 1,000 ML IV ONE (05:30)
[2022-02-16 06:14] LABS: Basophils # (Auto) 0.1 K/mm3 (0.0-0.1); Basophils % (Auto) 0.7 % (0.0-1.8); Eosinophils # (Auto) 0.2 K/mm3 (0.0-0.4); Eosinophils % (Auto) 2.3 % (0.0-4.3); Hematocrit 36.3 % (30.3-42.9); Hemoglobin 11.9 gm/dl (10.1-14.3); Lymphocytes # (Auto) 2.7 K/mm3 (1.2-5.4); Lymphocytes % (Auto) 27.9 % (13.4-35.0); Mean Corpuscular HGB Conc 33 % (30-34); Mean Corpuscular Volume 83 fl (79-97); Monocytes # (Auto) 0.8 K/mm3 (0.0-0.8); Monocytes % (Auto) 8.4 % (0.0-7.3); Platelet Count 295 K/mm3 (140-440); Red Blood Count 4.36 M/mm3 (3.65-5.03); Red Cell Distribution Width 14.6 % (13.2-15.2)
[2022-02-16 06:31] LABS: Alanine Aminotransferase 21 units/L (7-56); Albumin 3.9 g/dL (3.9-5); BUN/Creatinine Ratio 10; Blood Urea Nitrogen 8 mg/dL (7-17); Calcium 9.2 mg/dL (8.4-10.2); Hemolysis Index 9
[2022-02-16] MEDS ORDERED: MORPHINE 4 MG/1 ML INJ IV ONE (07:35)
--- NOTE | 2022-02-16 07:55 | XRay Report ---
CHEST 1 VIEW 02/16/2022 6:43 AM INDICATION / CLINICAL INFORMATION: UPRIGHT CXR; s/p lap sammie; r/o free air under allan. COMPARISON: None available. FINDINGS: SUPPORT DEVICES: None. HEART / MEDIASTINUM: No significant abnormality. LUNGS / PLEURA: No significant pulmonary or pleural abnormality. No pneumothorax. ADDITIONAL FINDINGS: No significant additional findings. IMPRESSION: 1. No acute findings. Signer Name: Alex Magdaleno Jr, MD Signed: 02/16/2022 7:50 AM Workstation Name: [id number]
[2022-02-16] MEDS ORDERED: MORPHINE 4 MG/1 ML INJ IV PRN (08:32)
--- NOTE | 2022-02-16 09:24 | Cat Scan Report ---
CT ABDOMEN AND PELVIS WITH CONTRAST HISTORY: post op day 4 s/p lap sammie, p/w diffuse abdominal COMPARISON: None. TECHNIQUE: Axial CT images were obtained through the abdomen and pelvis after 100 cc of Omnipaque 350 IV contrast. Sagittal and coronal reformatted images. All CT scans at this location are performed us ing CT dose reduction for ALARA by means of automated exposure control. FINDINGS: CT ABDOMEN: Lung Bases: Clear. Liver: No significant abnormality. Biliary: The gallbladder has been surgically removed. No abnormality is detected in the gallbladder f amy. The biliary ducts are normal caliber. Spleen: No significant abnormality. Unenlarged. Pancreas: No significant abnormality. Adrenals: No significant abnormality. Kidneys: No significant abnormality. Lymphatics: No lymphadenopathy. Vasculature: No significant abnormality. Bowel/Peritoneum: No significant abnormality. No free air. No free fluid. Gastric sleeve surgical lis nges are noted. The appendix is unremarkable. CT PELVIS: : No significant abnormality. Osseous Structures: No significant abnormality. Additional Findings: Tiny umbilical hernia containing fat. IMPRESSION: No acute process is identified. No clear explanation for diffuse abdominal pain. Surgical changes as described. Signer Name: Alex Magdaleno Jr, MD Signed: 02/16/2022 9:20 AM Workstation Name: [id number]
[2022-02-16] MEDS ORDERED: FAMOTIDINE 20 MG/2 ML INJ IV ONE (09:37)
--- NOTE | 2022-02-16 09:40 | Emergency Department Report ---
HPI - General Chief Complaint: Nausea/Vomiting/Diarrhea PUI?: No Time Seen by Provider: 02/16/22 07:14 - HPI HPI: 21-year-old female with multiple medical comorbidities presents for evaluation of intractable nausea vomiting abdominal pain. Patient is currently postop day 4 status post robotic cholecystectomy by [facility] surgeon, . Patient's mother reports the patient has been receiving antiemetics rectally but it is not helping her symptoms, and whenever she attempts to take Percocets, she vomits. Last bowel movement was 3 days ago and she states it was "a small amount." No melena hematochezia or hematemesis. ED Past Medical Hx - Past Medical History Previous Medical History?: Yes Hx Hypertension: No Hx Liver Disease: No Hx Renal Disease: No Hx Psychiatric Treatment: Yes (bipolar schizoaffective, PTSD, anxiety, adhd, autism) Hx Asthma: No Additional medical history: pica, Asperger,gastric bypass - Surgical History Hx Cholecystectomy: Yes Additional Surgical History: t&A i&d THROAT. HERNIA TENDON SURGERY RIGHT HAND - Social History Smoking Status: Never Smoker - Medications Home Medications: Home Medications Medication Instructions Recorded Confirmed Last Taken Type Metoclopramide [Reglan TAB] 10 mg PO QID PRN 02/11/22 02/11/22 Unknown History OXcarbazepine [Trileptal] 150 mg PO BID 02/11/22 02/11/22 Unknown History OXcarbazepine [Trileptal] 600 mg PO BID 02/11/22 02/11/22 Unknown History Omeprazole 40 mg PO BID 02/11/22 02/11/22 Unknown History Ziprasidone [Geodon] 40 mg PO BID 02/11/22 02/11/22 Unknown History hydrOXYzine HCL [Atarax] 50 mg PO HS 02/11/22 02/11/22 Unknown History oxyCODONE /ACETAMINOPHEN [Percocet 1 tab PO Q6H PRN #10 tablet 02/13/22 Unknown Rx 5/325 mg] ED Review of Systems ROS: Stated complaint: VOMITING BLOOD Other details as noted in HPI Comment: All other systems reviewed and negative Physical Exam - Physical Exam Vital Signs: Vital Signs 02/16/22 02/16/22 02/16/22 05:13 05:25 06:50 Temperature 98.2 F Pulse Rate 91 H 90 85 Respiratory 16 18 Rate Blood Pressure 161/114 Blood Pressure 147/109 139/85 [Right] O2 Sat by Pulse 99 99 98 Oximetry 02/16/22 08:00 Temperature 97.8 F Pulse Rate 61 Respiratory 20 Rate Blood Pressure Blood Pressure 165/110 [Right] O2 Sat by Pulse 100 Oximetry General: Gen: Adult female, uncomfortable appearing, lying on stretcher, complaining of "severe" abdominal pain, mild distress HEENT: Normocephalic atraumatic pupils equally round and reactive to light extraocular muscles intact sclera anicteric Neck: Full range of motion, no midline spinal tenderness palpation, no JVD, no carotid bruits, no nuchal rigidity CVS: S1-S2 regular rate and rhythm with no gallops rubs or murmurs, chest wall nontender Pulmonary: Clear to auscultation bilaterally, no wheezes rales or rhonchi Abdomen: Soft nondistended mild diffuse tenderness to palpation, surgical incision sites are dry and intact, no wound dehiscence no bleeding no erythema no drainage no guarding or rebound tenderness, no palpable deformities or step- offs, normal active bowel sounds, no hepatosplenomegaly, no pulsatile masses : Deferred Extremities: No cyanosis no clubbing no edema, intact distal peripheral pulses, Integumentary: Skin normal, no petechia no purpura no abscess no lacerations no evidence of trauma no evidence of infection Neuro: Patient is awake alert and oriented to person place time situation, mentating well, cranial nerves II through XII intact, no focal neurodeficits, sensation grossly tact Psych: Calm cooperative, mood affect normal ED Course Vital Signs 02/16/22 02/16/22 02/16/22 05:13 05:25 06:50 Temperature 98.2 F Pulse Rate 91 H 90 85 Respiratory 16 18 Rate Blood Pressure 161/114 Blood Pressure 147/109 139/85 [Right] O2 Sat by Pulse 99 99 98 Oximetry 02/16/22 08:00 Temperature 97.8 F Pulse Rate 61 Respiratory 20 Rate Blood Pressure Blood Pressure 165/110 [Right] O2 Sat by Pulse 100 Oximetry - Reevaluation(s) Reevaluation #1: 02/16/22 09:37 pt is comfortable and well appearing, she is sitting up in her stretcher, speaking in full sentences, she is nontoxic-appearing and her vitals are normal, patient is requesting specifically to have ice chips stating "I really want them." Patient and her mother were updated concerning lab results as well as CT scan results. I informed them that I am currently awaiting return call from Dr Ruddy Hou, who is covering for Dr. Bowman, to review the case given that she is postop. Reevaluation #2: 02/16/22 10:33 PT is well appearing. VSS. She denies any nausea. She denies any active vomiting while here. She says she tolerated ice chips without difficulty. - Consultations Consultation #1: 02/16/22 09:37am Return call received from Dr. Hou. She is covering for . I informed her of the patient's presentation, and negative CT scan findings as well as the patient's lab works. I was informed her that the patient is tolerating p.o. here without difficulty. She states that Dr. Bowman is already aware of the case and is reviewing it and will provide an update concerning her recommended disposition for the patient. 10:10am Call received from Dr. Hou. She states she spoke with Dr. Bowman. Per her v erbal report, pt's CT is negative for acute pathology. She advises that if the pt is tolerating PO here, she may be discharged. Pt to f/u with her for outpatient evaluation of her hiatal hernia. She advises that the patient remain on a clear liquids diet. ED Medical Decision Making - Lab Data Result diagrams: 02/16/22 05:42 02/16/22 05:42 - Radiology Data Radiology results: report reviewed - Medical Decision Making 21-year-old female with multiple medical comorbidities presents for evaluation of intractable nausea vomiting and abdominal pain, status post robotic cholecystectomy on February 12, 2022. Vital signs stable. Patient given intravenous fluids and antiemetics here as well as analgesia. She was reassessed multiple times and appears significantly improved. Chest x-ray performed to rule out free air under her diaphragm secondary to viscus per foration. Chest x-ray unremarkable. CT scan and pelvis demonstrates no acute pathology. Case reviewed via telephone with Dr. Hou, on-call surgeon who is covering for Dr. Bowman. Dr. Hou spoke with concerning the patient. Per her report, Dr. Bowman advises that given that the CAT scan is negative, if the patient is tolerating p.o. challenge, she may be discharged and advised to follow-up with her for outpatient management of the patient's hiatal hernia. She is to remain on clear liquids diet until cleared by Dr. Bowman. Overall the patient is significantly improved in her clinical appearance. Her labs and diagnostic imaging are unremarkable. Patient deemed stable for discharge to home. Prior to discharge she was given strict verbal and written return precautions. She verbalized understanding of the plan of care. Critical Care Time: No Critical care attestation.: If time is entered above; I have spent that time in minutes in the direct care of this critically ill patient, excluding procedure time. ED Disposition Clinical Impression: Nausea and vomiting, Abdominal pain Disposition: HOME / SELF CARE / HOMELESS Is pt being admited?: No Does the pt Need Aspirin: No Condition: Stable Instructions: Nausea and Vomiting, Adult, Pain Without a Known Cause, Clear Liquid Diet, Adult, [id number] Additional Instructions: Dr. Bowman advises that you come to her office to be evaluated further for your symptoms. She recommends that you be on a clear liquids diet only until you are cleared by her to resume regular foods. This is extremely important. Continue to take your prescriptions for nausea and pain as needed. Observe your symptoms very carefully. Return to the nearest emergency department as soon as possible if you develop severe or worsening pain, inability tolerate liquids or solids, any fever of 100.4 Fahrenheit or higher, or if any other new worrisome symptoms develop. Referrals: PRIMARY CARE, [Primary Care Provider] - 3-5 Days WANG BOWMAN DO [Staff Physician] - 3-5 Days
[2022-02-16 11:01] VITALS: BP 142/86
== END 2022-02-16 11:00 | disposition home or self-care (01) ==
LOC: ED 04:35
DX: R11.2 Nausea with vomiting, unspecified (principal); R10.84 Generalized abdominal pain; F31.9 Bipolar disorder, unspecified; F20.9 Schizophrenia, unspecified; F41.9 Anxiety disorder, unspecified; Z90.49 Acquired absence of other specified parts of digestive tract; Z79.899 Other long term (current) drug therapy
CPT/HCPCS: 36415; 71045; 74177; 80053; 83690; 84703; 85025; 96361; 96374; 96375; 96376; 99285; J2270; J2405; J3490; J7030; Q9967